=== PATIENT | female | born 1985 | race Caucasian/White ===

== ENCOUNTER 2022-07-07 00:46 | Emergency (ER) | payer SELFPAY ==
[~2022-07-07] VITALS: Ht 152.4 cm; Wt 55.0 kg
[2022-07-07 01:30] VITALS: BP 133/87
[2022-07-07] MEDS ORDERED: ALBUTEROL (0.5%) 2.5MG/0.5ML NEB HHN ONE (01:30)
[2022-07-07 01:58] LABS: BASOPHILS % 0.8 % (0.0-2.0); EOSINOPHILS % 0.6 % (0.0-5.0); HEMATOCRIT. 39.8 % (36.0-48.0); HEMOGLOBIN. 13.4 g/dL (12.0-16.0); LYMPHOCYTES % 39.5 % (20.0-50.0); MEAN CORPUSCULAR HEMOGLOBIN 29.5 pg (28.0-32.0); MEAN CORPUSCULAR VOLUME 87.5 fL (81.0-99.0); MEAN PLATELET VOLUME 7.9 fl (7.4-10.4); MONOCYTES % 9.9 % (2.0-8.0); NEUTROPHILS % 49.2 % (40.0-76.0); PLATELET 433 x1000/uL (130-400); RED BLOOD CELL COUNT 4.55 mill/uL (4.2-5.4); RED CELL DISTRIBUTION WIDTH 13.2 % (11.6-14.6)
[2022-07-07 02:07] LABS: BG CARBOXYHEMOGLOBIN 0.3 % (0.5-1.5); BG DEOXYHEMOGLOBIN 0.6 % (0.0-5.0); BG FRACTION INSPIRED OXYGEN 21; BG HCO3 ACT 22.3 mmol/L (22.0-26.0); BG OXYGEN SATURATION 99.4 % (92.0-98.5); BG OXYHEMOGLOBIN 99.1 % (94.0-97.0); BG PCO2 29.8 mmHg (35.0-45.0); BG PH 7.492 (7.350-7.450); BG PO2 323.8 mmHg (75.0-100.0); BG SAMPLE SITE RIGHT RADIAL; BG TOTAL HEMOGLOBIN 13.5 g/dL (12.0-18.0); BG VENT MODE ROOM AIR
[2022-07-07 02:09] LABS: CHLORIDE 108 mEq/L (98-107)
[2022-07-07] MEDS ORDERED: ALBU6.7H15 INH (02:16)
[2022-07-07 02:17] LABS: ETHANOL BLOOD < 10 mg/dL
[2022-07-07 02:18] LABS: HCG SCREEN NEGATIVE
[2022-07-07] MEDS: ALBUTEROL (0.5%) 2.5MG/0.5ML NEB HHN NR ×2 (02:26→02:30)
== END 2022-07-07 03:08 | disposition home or self-care (01) ==
LOC: ER 00:46
DX: J45.901 Unspecified asthma with (acute) exacerbation (principal); Z98.890 Other specified postprocedural states; Z00.00 Encounter for general adult medical examination without abnormal findings
CPT/HCPCS: 36415; 36600; 71045; 80053; 80320; 82375; 82805; 83690; 84703; 85025; 94640; 99284; Z7610; G0480